=== PATIENT | female | born 1950 | race Caucasian/White ===

== ENCOUNTER → 2016-11-13 | Outpatient (CLI) | payer OTHER ==
[2016-01-27 15:50] VITALS: BP 120/77
[~2016-11-13] MED LIST: SULF1TAB24 PO
--- NOTE | 2016-11-13 13:45 | RAD ---
Chest radiograph 11/13/2016 at 1126 hours Indication: Tobacco abuse for 51 years. Comparison: Chest radiograph 03/11/2015 Technique: PA and lateral views of the chest are provided. Findings: The cardiomediastinal silhouette is within normal limits. There are no pleural effusions. No pulmonary vascular congestion. No pneumothorax. Lungs are clear. Osseous structures are normal in appearance. Impression: No acute cardiopulmonary process.
== END | disposition home or self-care (01) ==
LOC: DXRADRC 11:22
PROVIDERS: ATTEND Nurse Practitioner Family
DX: Z00.00 Encounter for general adult medical examination without abnormal findings (principal); Z71.6 Tobacco abuse counseling
CPT/HCPCS: 71020

== ENCOUNTER → 2019-02-10 | Outpatient (CLI) | payer MEDICARE, OTHER ==
[2016-01-27 15:50] VITALS: BP 120/77
--- NOTE | 2019-02-10 15:29 | RAD ---
EXAM: Chest, 2 views. HISTORY: Dry cough. Smoking history. COMPARISON: 11/13/2016 FINDINGS: 2 views of the chest are obtained. There is no infiltrate, effusion or pneumothorax. The heart is normal in size. There is a tiny nodular opacity overlying the left mid thorax, likely a tiny granuloma. IMPRESSION: No acute pulmonary finding. Electronically signed by: Domonique Tan MD (02/10/2019 3:26 PM) [place] [id number]
== END | disposition home or self-care (01) ==
LOC: RAD 15:00
PROVIDERS: ATTEND Physician Assistant Medical
DX: J98.4 Other disorders of lung (principal); Z80.0 Family history of malignant neoplasm of digestive organs; F17.200 Nicotine dependence, unspecified, uncomplicated
CPT/HCPCS: 71046

== ENCOUNTER → 2019-05-20 | Day surgery (SDC) | payer MEDICARE, OTHER ==
[~2019-05-20] MED LIST changes: +ALBU2.5V8 IH; +BUDE10.2 IH; +CHOL4POW11 PO; +FENO145T32 PO; +IV RINGERS SOLUTION,LACTATED 1,000 ML IV SCH; +LISI10TA2 PO; +METF10007 PO; +OMEG1CAP2 PO; +PROPOFOL 20 ML IV ONE
[2019-05-20 13:15] VITALS: BP 134/82
== END | disposition home or self-care (01) ==
LOC: SURG 11:21
PROVIDERS: ATTEND Internal Medicine Gastroenterology
DX: K21.9 Gastro-esophageal reflux disease without esophagitis (principal); K29.50 Unspecified chronic gastritis without bleeding; B96.81 Helicobacter pylori [H. pylori] as the cause of diseases classified elsewhere; J44.9 Chronic obstructive pulmonary disease, unspecified; E11.9 Type 2 diabetes mellitus without complications; I10 Essential (primary) hypertension; M54.5 Low back pain; G47.00 Insomnia, unspecified; E78.5 Hyperlipidemia, unspecified; F17.210 Nicotine dependence, cigarettes, uncomplicated; E66.9 Obesity, unspecified; Z80.0 Family history of malignant neoplasm of digestive organs; Z98.890 Other specified postprocedural states; Z79.899 Other long term (current) drug therapy; Z88.6 Allergy status to analgesic agent; Z88.8 Allergy status to other drugs, medicaments and biological substances; Z79.84 Long term (current) use of oral hypoglycemic drugs; Z68.39 Body mass index [BMI] 39.0-39.9, adult
CPT/HCPCS: 43239; 82947; J2704; J7120

== ENCOUNTER → 2019-10-31 | Outpatient (CLI) | payer MEDICARE, OTHER ==
[2019-05-20 13:15] VITALS: BP 134/82
[~2019-10-31] MED LIST changes: -IV RINGERS SOLUTION,LACTATED 1,000 ML IV SCH; -PROPOFOL 20 ML IV ONE; +TRAM50TA PO
--- NOTE | 2019-10-31 09:03 | RAD ---
L-SPINE 6V AP/LAT/OBL/FLEX/EXT History: Back pain, fall 3 months ago with continued pain Comparison: None. Findings: 8 views of the lumbar spine are submitted. There is mild right lateral subluxation L2 relative to L3. There is minimal posterior subluxation L3 relative to L4 fairly similar with flexion and extension. There is moderate to severe degenerative disc disease at L5-S1, mild to moderate degenerative disc disease at L4-5 and to a lesser degree at L3-4, minimally at more superior lumbar levels. There is multilevel spondylosis L1-L2 through L4-5. There is facet degenerative change greater inferiorly of the lumbar spine. There is scattered calcified plaque of the abdominal aorta. Impression: 1. There is lumbar degenerative disc disease greatest at L5-S1 and to lesser degree L3-4 and L4-5. There is multilevel spondylosis. There is minimal posterior subluxation L3 relative to L4. Electronically signed by: Praveen Francisco MD (10/31/2019 9:00 AM) [id number]
== END | disposition home or self-care (01) ==
LOC: PMG 08:19
PROVIDERS: ATTEND Physician Assistant Medical
DX: M51.37 Other intervertebral disc degeneration, lumbosacral region (principal); M47.817 Spondylosis without myelopathy or radiculopathy, lumbosacral region; I70.0 Atherosclerosis of aorta
CPT/HCPCS: 72114

== ENCOUNTER 2021-01-17 17:43 | Emergency (ER) | payer MEDICARE, OTHER ==
[~2021-01-17] VITALS: Ht 160 cm; Wt 84.8 kg
[~2021-01-17 17:43] MED LIST changes: +LISI10TA16 PO; -LISI10TA2 PO
[2021-01-17 17:51] VITALS: BP 140/66
[2021-01-17] MEDS ORDERED: PRED-220 PO (18:24)
--- NOTE | 2021-01-17 18:24 | PHYS DOC ---
Past History Past Medical History: Diabetes, High Cholesterol, Other Past Surgical History: No Surgical History Alcohol Use: Occasionally Drug Use: None General Adult EDM: Chief Complaint: SKIN PROBLEM HPI: HPI: 70-year-old female presents with itchy ears, facial swelling, intermittent dry cough. The patient has noticed the itching of her ears and the mild swelling of her bilateral face for 3 or 4 days. She has tried Benadryl and panl-bil-fmgzrnl allergy medicines with no relief. She is not allergic to anything as far she knows. She has no idea why her face to be swollen. She has not changed any medications. She has had no new lotions, soaps, or cosmetics. She was positive for COVID-19 back in November of this year. She has had her cough since that time. No change to the cough. She is a cigarette smoker. Review of Systems: Review of Systems: Constitutional: Denies fever or chills Eyes: Denies change in visual acuity HENT: Swollen face, itchy ears. Respiratory: Cough without shortness of breath Cardiovascular: Denies chest pain or edema GI: Denies abdominal pain, nausea, vomiting, bloody stools or diarrhea : Denies dysuria Musculoskeletal: Denies back pain or joint pain Integument: Denies rash Neurologic: Denies headache, focal weakness or sensory changes Endocrine: Denies polyuria or polydipsia Lymphatic: Denies swollen glands Psychiatric: Denies depression or anxiety Allergies: Allergies: Allergies Coded Allergies Type Severity Reaction Last Updated Verified niacin Allergy Unknown 05/14/19 No codeine Adverse Reaction Intermediate makes her cry 05/14/19 No Physical Exam: PE: Constitutional: Well developed, well nourished, no acute distress, non-toxic appearance. [] HENT: Normocephalic, atraumatic, bilateral external ears normal, oropharynx moist, no oral exudates, nose normal. [] Eyes: PERRLA, EOMI, conjunctiva normal, no discharge. [] Neck: Normal range of motion, no tenderness, supple, no stridor. [] Cardiovascular:Heart rate regular rhythm, no murmur [] Lungs & Thorax: Bilateral breath sounds clear to auscultation [] Abdomen: Bowel sounds normal, soft, no tenderness, no masses, no pulsatile masses. [] Skin: Mildly erythematous and mildly edematous cheeks bilaterally. [] Back: No tenderness, no CVA tenderness. [] Extremities: No tenderness, no cyanosis, no clubbing, ROM intact, no edema. [] Neurologic: Alert and oriented X 3, normal motor function, normal sensory function, no focal deficits noted. [] Psychologic: Affect normal, judgement normal, mood normal. [] Current Patient Data: Vital Signs: Vital Signs Date Time Temp Pulse Resp B/P (MAP) Pulse Ox O2 Delivery O2 Flow Rate FiO2 01/17/21 17:51 98.1 98 20 140/66 (90) 97 Room Air EKG: EKG: [] Radiology/Procedures: Radiology/Procedures: [] Heart Score: C/O Chest Pain: N/A Risk Factors: Risk Factors: DM, Current or recent (<one month) smoker, HTN, HLP, family history of CAD, obesity. Risk Scores: Score 0 - 3: 2.5% MACE over next 6 weeks - Discharge Home Score 4 - 6: 20.3% MACE over next 6 weeks - Admit for Clinical Observation Score 7 - 10: 72.7% MACE over next 6 weeks - Early Invasive Strategies Course & Med Decision Making: Course & Med Decision Making Pertinent Labs and Imaging studies reviewed. (See chart for details) The patient has no history of seasonal allergies, but her symptoms sound similar to seasonal allergies. She has had no new exposures that she can think of. The patient has had reaction to high-dose steroids in the past. It makes her stay awake at night and feels jittery. We will try low-dose of prednisone 10 mg twice a day for 5 days to see if this helps with her symptoms overall. She is stable for discharge at this time. [] Dragon Disclaimer: Dragon Disclaimer: This electronic medical record was generated, in whole or in part, using a voice recognition dictation system. Departure Departure: Impression: Primary Impression: Facial rash Disposition: HOME / SELF CARE / HOMELESS Condition: STABLE Referrals: BENJAMÍN FIGUEROA (PCP) Patient Instructions: Rash, Eedv-fo-Gdmc Scripts Prednisone (PREDNISONE) 10 Mg Tablet 10 MG PO BID for rash for 5 Days, #10 TAB Prov: AYUSH CERVANTES DO 01/17/21 AYSUH CERVANTES DO Jan 17, 2021 18:24
[2021-01-17] MEDS ORDERED: predniSONE 10 MG TABLET. PO ONE (18:30)
== END 2021-01-17 19:00 | disposition home or self-care (01) ==
LOC: ER 17:43
DX: R21 Rash and other nonspecific skin eruption (principal); R22.0 Localized swelling, mass and lump, head; E11.9 Type 2 diabetes mellitus without complications; E78.00 Pure hypercholesterolemia, unspecified; Z88.1 Allergy status to other antibiotic agents; Z88.5 Allergy status to narcotic agent
CPT/HCPCS: 99283; J7512

== ENCOUNTER → 2021-02-09 | Outpatient (CLI) | payer MEDICARE, OTHER ==
[2021-01-17 17:51] VITALS: BP 140/66
[~2021-02-09] MED LIST changes: +PRED-220 PO
--- NOTE | 2021-02-09 09:40 | RAD ---
EXAM: Chest, 2 views. HISTORY: Shortness of breath. COMPARISON: 02/10/2019 FINDINGS: 2 views of the chest are obtained. There is right suprahilar mass. There is no pleural effu conor or pneumothorax. The heart is normal in size. IMPRESSION: Right suprahilar mass. Correlate with a dedicated chest CT. Electronically signed by: Domonique Tan MD (02/09/2021 9:37 AM) [id number]
== END ==
LOC: RAD 09:21
PROVIDERS: ATTEND Physician Assistant Medical
DX: J44.9 Chronic obstructive pulmonary disease, unspecified (principal)
CPT/HCPCS: 71046

== ENCOUNTER 2021-02-13 09:48 | Emergency (ER) | payer MEDICARE, OTHER ==
[~2021-02-13] VITALS: Ht 160 cm; Wt 84.8 kg
[2021-02-13 09:48] VITALS: BP 137/64
[2021-02-13] MEDS ORDERED: FLUT9.9S NS (11:23)
[2021-02-13] MEDS ORDERED: CETI10TA74 PO (11:23)
--- NOTE | 2021-02-13 11:25 | PHYS DOC ---
Past History Past Medical History: Diabetes, High Cholesterol, Other Past Surgical History: No Surgical History Alcohol Use: Occasionally Drug Use: None General Adult EDM: Chief Complaint: SKIN PROBLEM HPI: HPI: 62-year-old female past medical history of yaf-byjhbro-btgnsuvum diabetes, hypertension and tobacco use, presents the ED with complaints of redness to both cheeks stating " everyone keeps saying my face and neck is swollen." Reports she sleeps in an old building with a fan on. Redness and swelling decrease when she leaves her apartment. Is a very nasal voice and reports nasal congestion for over 6 months. Also reports itchy watery eyes. States she has had chronic shortness of breath since having Covid in November. Had a mass on her lung CAT scan and has urgent follow-up for this. Denies any known history of autoimmune diso rders. No associated anorexia, lack of taste or smell or difficulties breathing. Was seen in the ED for similar symptoms last month. Reports Zulema Zafar started her on Bactrim and prednisone. Use to take zyrtec. Has no known mental or medication allergies. Review of Systems: Review of Systems: Constitutional: Denies fever or chills Eyes: Denies change in visual acuity HENT: Denies nasal congestion or sore throat Respiratory: Denies cough or shortness of breath Cardiovascular: Denies chest pain or edema GI: Denies abdominal pain, nausea, vomiting, bloody stools or diarrhea : Denies dysuria or hematuria Musculoskeletal: Denies back pain or joint pain Integument: Denies desquamation or blistering lesions Neurologic: Denies headache, focal weakness or sensory changes Endocrine: Denies polyuria or polydipsia Lymphatic: Denies swollen glands Psychiatric: Denies depression or anxiety Allergies: Allergies: Allergies Coded Allergies Type Severity Reaction Last Updated Verified niacin Allergy Unknown 05/14/19 No codeine Adverse Reaction Intermediate makes her cry 05/14/19 No Physical Exam: PE: Constitutional: Well developed, well nourished, no acute distress, non-toxic appearance. HENT: Normocephalic, atraumatic, mild lower erythema over both cheeks-redness is not warm to the touch, very nasal/congested voice, no oropharyngeal edema Eyes: EOMI, conjunctiva normal, no discharge. Neck: Normal range of motion, supple, Cardiovascular: S1/2 present, regular rhythm Lungs & Thorax: Speaking in full sentences, no drooling or muffled voice, bilateral equal chest rise, no tachypnea or increased work of breathing Abdomen: soft, no tenderness, Skin: Warm, dry, no erythema, no rash. [] Back: No tenderness, no CVA tenderness. [] Extremities: No tenderness, no cyanosis, no lower extremity edema Neurologic: Alert and oriented X 3, normal motor function, normal sensory function, no focal deficits noted. [] Psychologic: Affect normal, judgement normal, mood normal. [] EKG: EKG: [] Radiology/Procedures: Radiology/Procedures: [] Heart Score: C/O Chest Pain: No Risk Factors: Risk Factors: DM, Current or recent (<one month) smoker, HTN, HLP, family history of CAD, obesity. Risk Scores: Score 0 - 3: 2.5% MACE over next 6 weeks - Discharge Home Score 4 - 6: 20.3% MACE over next 6 weeks - Admit for Clinical Observation Score 7 - 10: 72.7% MACE over next 6 weeks - Early Invasive Strategies Course & Med Decision Making: Course & Med Decision Making Pertinent Labs and Imaging studies reviewed. (See chart for details) Concern for waxing and waning, chronic facial rash that improves when leaving her apartment. Also with chronic sinusitis. Patient compliant with her Bactrim and prednisone. Will add Zyrtec and Flonase to treat for allergic rhinitis/sinusitis in addition to autoimmune and infectious causes being treated. SLE/autoimmune on ddx. Patient well-appearing, nontoxic. Oral cavity with no mucous membrane lesions. Negative Nikolsky sign. Will discharge home with strict ED return precautions were given for blistering lesions, skin slough ing, fever, nuchal rigidity, blurry vision neurologic deficits. Encouraged urgent outpatient follow-up with PMD and allergy, immunology and rheumatology. Life-threatening processes were considered but are low suspicion at this time, given history, physical exam and ED workup. Pt was educated on all prescription medications and adverse effects. All patient's questions were answered and pt was stable at time of discharge. Life/limb-threatening differential includes but is not limited to, erythema multiforme, rocha-missy syndrome, toxic epidermal necrolysis, staphylococcal scalded skin syndrome, necrotizing fasciitis/myositis/cellulitis, purpura fulminans, heparin or warfarin induced skin necrosis, angioedema, anaphylaxis drug rash, disseminated intravascular coagulation, disseminated gonococcal disease, vasculitis, septicemia, petechial disorder or coagulopathy, viral exanthem, Kawasaki's disease or life-threatening burn requiring burn center management or escharotomy. I have spoken with the patient and/or caregivers. I explained the patient's condition, diagnoses and treatment plan based on the information available to me at this time. I have answered the patient and/or caregiver's questions and addressed any concerns. The patient and/or caregivers have a good understanding of patient's diagnosis, condition and treatment plan as can be expected at this point. Vital signs have been stable. Patient's condition is stable and appropriate for discharge from the emergency department. Patient will pursue further outpatient evaluation with primary care physician or other designated or consulting physician as outlined in the discharge instructions. The patient and/or caregivers are agreeable to this plan of care and follow-up instructions have been explained in detail. The patient and/or caregivers have received these instructions in written form and have expressed an understanding of the discharge instructions. The patient and/or caregivers are aware that any significant change of condition or worsening of symptoms should prompt immediate return to this or the closest emergency department or call to 1. Myke Disclaimer: Myke Disclaimer: This electronic medical record was generated, in whole or in part, using a voice recognition dictation system. Departure Departure: Impression: Primary Impression: Facial rash Additional Impression: Allergic sinusitis Disposition: HOME / SELF CARE / HOMELESS Condition: STABLE Referrals: ZULEMA FIGUEROA (PCP) Follow-up with your primary care physician in 24 to 48 hours OR FOLLOW UP WITH FAMILY MEDICINE: [address] [facility], [facility] [address] [place] [address] Patient Instructions: Allergic Rhinitis, Allergy Skin Testing, Sinusitis Additional Instructions: [facility]-consider for testing [facility] Call for appointment [phone] [facility] on the [address], [address] (Address for directions and navigation systems: [address] [place] [address]) OR Rheumatology FOR DEFINITIVE MANAGEMENT-consider autoimmune evaluation Maxim Duron MD [facility] [address] [facility] [address] [place] [address] EMERGENCY DEPARTMENT GENERAL DISCHARGE INSTRUCTIONS Thank you for coming to [facility] (ED) today and trusting us with you care. We trust that you had a positivie experience in our Emergency Department. If you wish to speak to the department management, you may call the director at [phone]. YOUR FOLLOW UP INSTRUCTIONS ARE FOLLOWS: 1. Do you have a private Doctor? If you do not have a private doctor, please ask for a resource list of physicians or clinics that may be able to assist you with follow up care. 2. The Emergency Physician has interpreted your x-rays. The X-Ray specialist will also review them. If there is a change in the findings, you will be notified in 48 hours when at all possible. 3. A lab test or culture has been done, your results will be reviewed and you will be notified if you need a change in treatment. ADDITIONAL INSTRUCTIONS AND INFORMATION: 1. Your care today has been supervised by a physician who is specially trained in emergency care. Many problems require more than one evaluation for a complete diagnosis and treatment. We recommend that you schedule your follow up appointment as recommended to ensure complete treatment of you illness or injury. If you are unable to obtain follow up care and continue to have a problem, or if your condition worsens, we recommend that you return to the ED. 2. We are not able to safely determine your condition over the phone nor are we able to give sound medical advice over the phone. For these safety reasons, if you call for medical advice we will ask you to come to the ED for further evaluation. 3. If you have any questions regarding these discharge instructions please call the ED at [phone]. SAFETY INFORMATION: In the interest of safety, wellness, and injury prevention; we encourage you to wear your sealbelt, if you smoke; quite smoking, and we encourage family to use a protective helmet for bicycling and other sporting events that present an increased risk for head injury. IF YOUR SYMPTOMS WORSEN OR NEW SYMPTOMS DEVELOP, OR YOU HAVE CONCERNS ABOUT YOUR CONDITION; OR IF YOUR CONDITION WORSENS WHILE YOU ARE WAITING FOR YOUR FOLLOW UP APPOINTMENT; EITHER CONTACT YOUR PRIMARY CARE DOCTOR, THE PHYSICIAN WHOSE NAME AND NUMBER YOU WERE GIVEN, OR RETURN TO THE ED IMMEDIATELY. Scripts Fluticasone Propionate (Flonase Allergy Relief) 9.9 Ml [place].susp 2 SPRAYS NS DAILY for allergic rhinitis for 7 Days, BOTTLE Prov: ZULEMA CLIFTON DO 02/13/21 Cetirizine Hcl (ZYRTEC) 10 Mg Tablet 1 TAB PO DAILY for allergies, #30 TAB 0 Refills Prov: ZULEMA CLIFTON DO 02/13/21 ZULEMA CLIFTON DO Feb 13, 2021 11:24
== END 2021-02-13 11:30 | disposition home or self-care (01) ==
LOC: ER 09:48
DX: R21 Rash and other nonspecific skin eruption (principal); J30.9 Allergic rhinitis, unspecified; E11.9 Type 2 diabetes mellitus without complications; E78.5 Hyperlipidemia, unspecified
CPT/HCPCS: 99283

== ENCOUNTER → 2021-02-23 | Outpatient (CLI) | payer MEDICARE, OTHER ==
[2021-02-13 09:48] VITALS: BP 137/64
[~2021-02-23] MED LIST changes: +CETI10TA74 PO; +FLUT9.9S NS
--- NOTE | 2021-02-23 16:52 | RAD ---
EXAM: CT CHEST WITHOUT CONTRAST HISTORY: Abnormal chest radiograph COMPARISON: Chest radiograph 02/09/2021 TECHNIQUE: Helical CT of the chest performed without contrast. Coronal and sagittal reformats were o btained. One or more of the following individualized dose reduction techniques were utilized for this examinat ion: 1. Automated exposure control 2. Adjustment of the mA and/or kV according to patient size 3. Use of iterative reconstruction technique. FINDINGS: Thyroid gland and thoracic inlet: Unremarkable. Heart and great vessels: Heart is normal in size. Trace pericardial fluid. There are coronary artery and aortic valve calcifications. Thoracic aorta is normal in caliber. Mediastinum and ervin: Bulky confluent right mediastinal and hilar soft tissue confluent with a right suprahilar mass described below. Lungs and pleura: There is a large right suprahilar mass measuring about 8 x 7 x 6 cm in greatest jose meters. This extends into the mediastinum. The mass encases the right upper lobe central bronchovascu lar structures. Causes complete occlusion of the right upper lobe bronchus and severe narrowing of th e right mainstem bronchus and proximal bronchus intermedius. There were more bandlike confluent opaci ties in the right upper lobe distal to the mass that may be postobstructive atelectasis or pneumonia. There numerous additional tiny surrounding nodules and mild interlobular septal thickening in the ri ght upper lobe around the mass. The lungs are otherwise clear. No pleural effusion. Chest wall and axillae: There is fat stranding in the axillary regions and mildly prominent bilateral axillary lymph nodes. For example left axillary lymph node measures 1 cm short axis. A right axillar y lymph node measures 7 mm axis. Additional right axillary lymph node measures 8 mm short axis. There appear to be collateral vessels in the chest wall. Mild body wall edema. Upper abdomen: There is an abnormal mesenteric lymph node in the upper abdomen posterior to the gastr ic antrum measuring 1.9 x 1.3 cm (image 102, series 3). There are enlarged aortocaval and periaortic lymph nodes. For example, and aortocaval lymph node measures 1.9 x 0.9 cm (image 106, series 111).. A dditional smaller ramses hepatis and gastrohepatic ligament lymph nodes. Probable sludge in the gallbl adder. Bones: No acute osseous abnormality. IMPRESSION: 1. Large right suprahilar mass extending into the mediastinum highly suspicious for malignancy. There are numerous tiny micronodules and interlobular septal thickening around the mass, which may reflect lymphangitic spread of malignancy. 2. There is complete occlusion of the right upper lobe bronchus and severe narrowing of the right rigoberto nstem bronchus and proximal bronchus intermedius by the mass. Probable postobstructive atelectasis ve rsus pneumonia in the right upper lobe distal to the mass. 3. Additional abnormal lymph nodes in the axillae and upper abdomen suspicious for metastatic disease . Electronically signed by: Maddy Day MD (02/23/2021 4:49 PM) [facility]
== END ==
LOC: CT 14:07
PROVIDERS: ATTEND Physician Assistant Medical
DX: J18.9 Pneumonia, unspecified organism (principal); R91.8 Other nonspecific abnormal finding of lung field; J98.4 Other disorders of lung; R93.89 Abnormal findings on diagnostic imaging of other specified body structures; I35.8 Other nonrheumatic aortic valve disorders
CPT/HCPCS: 71250

== ENCOUNTER 2021-03-10 10:14 | Emergency (ER) | payer MEDICARE, OTHER ==
[~2021-03-10] VITALS: Ht 160 cm; Wt 84.8 kg
--- NOTE | 2021-03-10 11:38 | PHYS DOC ---
Past History Past Medical History: Diabetes, High Cholesterol, Other (STEPHEN ROMERO) Past Surgical History: No Surgical History (STEPHEN ROMERO) Alcohol Use: Rarely Drug Use: None (STEPHEN ROMERO) General Adult EDM: Chief Complaint: UPPER EXTREMITY SWELLING HPI: HPI: Patient is a 70 year old female with history of diabetes and hypertension who presents with bilateral upper extremity, bilateral lower extremity and chest swelling and shortness of breath with known pneumonia x1 week. Patient states she was staying with family in [place] for 1 week and had multiple visits to the ER. She states she received 3 breathing treatments, was diagnosed with pneumonia and discharged with prednisone. Patient was Covid positive in November and has ongoing shortness of breath since that time. Patient denies known history of CHF or kidney disease. Patient has been a smoker for the past 55 years. Patient denies fever, chills, weakness, chest pain, palpitations, abdominal pain, NVD. (STEPHEN ROMERO) Review of Systems: Review of Systems: Constitutional: Denies fever or chills Eyes: Denies change in visual acuity or visual field deficits HENT: Denies nasal congestion or sore throat Respiratory: See HPI Cardiovascular: See HPI GI: Denies abdominal pain, nausea, vomiting, bloody stools or diarrhea : Denies dysuria or hematuria Musculoskeletal: Denies back pain or joint pain Integument: Denies rash or other skin lesions Neurologic: Denies headache, focal weakness or sensory changes (STEPHEN ROMERO) Allergies: Allergies: Allergies Coded Allergies Type Severity Reaction Last Updated Verified niacin Allergy Unknown 05/14/19 No codeine Adverse Reaction Intermediate makes her cry 05/14/19 No (STEPHEN ROMERO) Physical Exam: PE: Constitutional: Obese, well nourished, no acute distress, non-toxic appearance. HENT: Normocephalic, atraumatic, bilateral external ears normal, oropharynx moist, no oral exudates, nose normal. Eyes: PERRLA, EOMI, conjunctiva normal, no discharge. Neck: Normal range of motion, no tenderness, no stridor. Cardiovascular: Heart rate regular rhythm, no murmur. Lungs & Thorax: Decreased breath sounds in bilateral bases, upper lung pederson with expiratory rhonchi bilaterally. Abdomen: Protuberant abdomen, bowel sounds normal, soft, no tenderness, no masses, no pulsatile masses. Skin: Warm, dry, no erythema, no rash. Back: No tenderness, no CVA tenderness. Extremities: Minimal swelling to bilateral lower extremities without pitting. Bilateral upper extremities edematous to the hand R>L, right hand trace pitting. No tenderness, no cyanosis, no clubbing, ROM intact. Neurologic: Alert and oriented x3, normal motor function, no focal deficits noted. (STEPHEN ROMERO) Current Patient Data: Labs: Laboratory Tests Test 03/10/21 11:23 03/10/21 11:55 03/10/21 12:00 03/10/21 12:14 White Blood Count 9.5 x10^3/uL (4.0-11.0) Red Blood Count 3.53 x10^6/uL (3.50-5.40) Hemoglobin 10.2 g/dL (12.0-15.5) Hematocrit 31.2 % (36.0-47.0) Mean Corpuscular Volume 88 fL (79-100) Mean Corpuscular Hemoglobin 29 pg (25-35) Mean Corpuscular Hemoglobin Concent 33 g/dL (31-37) Red Cell Distribution Width 17.1 % (11.5-14.5) Platelet Count 383 x10^3/uL (140-400) Neutrophils (%) (Auto) 71 % (31-73) Lymphocytes (%) (Auto) 20 % (24-48) Monocytes (%) (Auto) 7 % (0-9) Eosinophils (%) (Auto) 2 % (0-3) Basophils (%) (Auto) 1 % (0-3) Neutrophils # (Auto) 6.8 x10^3uL (1.8-7.7) Lymphocytes # (Auto) 1.9 x10^3/uL (1.0-4.8) Monocytes # (Auto) 0.6 x10^3/uL (0.0-1.1) Eosinophils # (Auto) 0.1 x10^3/uL (0.0-0.7) Basophils # (Auto) 0.1 x10^3/uL (0.0-0.2) Prothrombin Time 11.0 SEC (9.4-11.4) Prothromb Time International Ratio 1.1 (0.9-1.1) Activated Partial Thromboplast Time 26 SEC (23-33) Sodium Level 138 mmol/L (136-145) Potassium Level 4.7 mmol/L (3.5-5.1) Chloride Level 101 mmol/L (98-107) Carbon Dioxide Level 32 mmol/L (21-32) Anion Gap 5 (6-14) Blood Urea Nitrogen 12 mg/dL (7-20) Creatinine 0.8 mg/dL (0.6-1.0) Estimated GFR (Cockcroft-Gault) 71.3 BUN/Creatinine Ratio 15 (6-20) Glucose Level 92 mg/dL (70-99) Calcium Level 8.6 mg/dL (8.5-10.1) Magnesium Level 1.4 mg/dL (1.8-2.4) Total Bilirubin 0.2 mg/dL (0.2-1.0) Aspartate Amino Transf (AST/SGOT) 9 U/L (15-37) Alanine Aminotransferase (ALT/SGPT) 21 U/L (14-59) Alkaline Phosphatase 119 U/L (46-116) Troponin I High Sensitivity 6 ng/L (4-50) HD-Rdl-N-Type Natriuretic Peptide 343 pg/mL (0-124) Total Protein 7.5 g/dL (6.4-8.2) Albumin 3.1 g/dL (3.4-5.0) Albumin/Globulin Ratio 0.7 (1.0-1.7) Lactic Acid Level 0.8 mmol/L (0.4-2.0) Blood Gas pH 7.53 (7.35-7.45) Blood Gas PCO2 34 mmHg (35-45) Blood Gas PO2 98 mmHg (80-100) Blood Gas HCO3 28 mmol/L (22-26) Arterial Bld O2 Saturation (Calc) 98 % (92-99) FiO2 21 % SARS-CoV-2 Antigen (Rapid) Negative (NEGATIVE) Test 03/10/21 12:58 Urine Collection Type Unknown Urine Color Yellow Urine Clarity Cloudy Urine pH 6.0 Urine Specific [place] 1.015 Urine Protein Neg (NEG-TRACE) Urine Glucose (UA) Neg mg/dL (NEG) Urine Ketones (Stick) Neg mg/dL (NEG) Urine Blood Small (NEG) Urine Nitrite Pos (NEG) Urine Bilirubin Neg (NEG) Urine Urobilinogen Dipstick 0.2 mg/dL (0.2 mg/dL) Urine Leukocyte Esterase Large (NEG) Urine RBC 1-2 /HPF (0-2) Urine WBC >40 /HPF (0-4) Urine Squamous Epithelial Cells Few /LPF Urine Bacteria Many /HPF (0-FEW) Vital Signs: Vital Signs Date Time Temp Pulse Resp B/P (MAP) Pulse Ox O2 Delivery O2 Flow Rate FiO2 03/10/21 10:31 97.4 84 16 126/49 (74) 98 Room Air (STEPHEN ROMERO) EKG: EKG: EKG Interpreted by Dr. Royal at 1123: Regular rate and rhythm 80 bpm with no ectopic beats. Low voltage EKG. No concerning ST-T wave changes. (STEPHEN ROMERO) Radiology/Procedures: Radiology/Procedures: PROCEDURE: CHEST AP ONLY Portable chest x-ray compared to similar PA and lateral chest x-ray dated February 092020 for shortness of breath. FINDINGS: There is redemonstration of a right suprahilar mass, with elevation the right hemidiaphragm likely reflecting some degree of segmental atelectasis as well. Overall this does not appear worse than on the prior chest x-ray, and adjacent lung may be slightly better aerated. Left lung is clear. Heart size within normal limits. IMPRESSION: 1. Essentially stable chest x-ray with right suprahilar mass and signs of upper lobar segmental atelectasis. No new lung parenchymal abnormalities. Electronically signed by: Parveen Hernandez MD (03/10/2021 11:39 AM) [id number] PROCEDURE: CT CHEST ABD PELVIS W/CONTRAST EXAM: CT CHEST, ABDOMEN, AND PELVIS WITH CONTRAST INDICATION: Upper extremity swelling, lung mass, pneumonia COMPARISON: CT chest 02/23/2021 TECHNIQUE: Helical CT imaging performed of the chest, abdomen and pelvis after administration of 75 mL Omnipaque 300 intravenous contrast. Sagittal and coronal reformats were obtained. One or more of the following individualized dose reduction techniques were utilized for this examination: 1. Automated exposure control 2. Adjustment of the mA and/or kV according to patient size 3. Use of iterative reconstruction technique. FINDINGS: CHEST: Thyroid gland and thoracic inlet: Unremarkable. Heart and great vessels: Heart is normal in size. There is trace pericardial fluid, unchanged. There are coronary artery calcifications. Thoracic aorta is normal in caliber. Central pulmonary arteries are clear. There is attenuation of right upper lobe pulmonary arteries in the region of the mass. There is occlusion of the superior vena cava, and acute appearing thrombus in the right brachiocephalic vein and part of the right subclavian vein. There are multiple collateral vessels in the right chest wall and abdominal wall. The azygos vein is enlarged. There is a hot quadrate lobe sign in the liver reflecting portosystemic shunting. Mediastinum and ervin: Right suprahilar mass extending into the mediastinum is unchanged, described below. Lungs and pleura: The large right upper lobe suprahilar mass abutting and extending into the mediastinum is unchanged. This measures approximately 7 to 8 cm in greatest diameter. This continues to encase the right central bronchovascular structures, with occlusion of the right upper lobe bronchus and narrowing of the bronchus intermedius. There is unchanged consolidation of lung distal to the mass in the right upper lobe, either post obstructive atelectasis or pneumonia. Unchanged septal thickening and tiny nodules around the mass. There is a new small right pleural effusion. Chest wall and axillae: There are multiple collateral vessels in the chest wall, as above. There is new extensive subcutaneous edema in the chest wall. Prominent bilateral axillary lymph nodes. Bones: No acute osseous abnormality in the chest. ABDOMEN AND PELVIS: Liver: Liver is enlarged measuring 20 cm in length. There is no focal lesion. There is a hot quadrate lobe sign in the liver reflecting portosystemic shunting. Gallbladder/Biliary Tree: Normal. Pancreas: Normal. Spleen: Normal. Adrenal Glands: Normal. Kidneys/Ureters/Bladder: Kidneys are normal in size and enhance symmetrically. No hydronephrosis. Ureters are normal. There is diffuse bladder wall thickening. Reproductive Organs: Uterus is present. No adnexal mass. Stomach, small bowel, and colon: The stomach, small bowel, and appendix are normal. There is sigmoid diverticulosis. Vasculature: No aortic aneurysm. Mild calcified aortoiliac atherosclerosis. Lymph Nodes: Enlarged portacaval lymph nodes measuring up to 1 cm short axis are unchanged. There is an abnormal lymph node or soft tissue nodule just inferior to the pancreatic neck and posterior to the gastric antrum measuring 2.1 x 1.4 cm, unchanged. There is an enlarged right external iliac chain lymph nodes measuring 2.3 x 2.0 cm (image 123, series 5). Smaller right external iliac chain lymph node measures 1.3 x 0.7 cm (image 1 3, series 5). There is an enlarged aortocaval lymph node measuring 1.8 x 0.9 cm. Prominent left periaortic lymph nodes. There is an enlarged left pelvic sidewall lymph node measuring 1.1 x 1.5 cm. Peritoneum and retroperitoneum: No free fluid or free air. Bones: There is a large lytic lesion in the left iliac wing with a soft tissue component measuring 5.2 x 4.5 cm (image 92, series 5). Suspected additional ly tic lesions in the posterior iliac bones There is heterogeneous appearance elsewhere in the pelvis which may represent additional lesions. IMPRESSION: 1. 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 There is acute appearing thrombus in the right brachiocephalic vein and subclavian veins. Extensive collateral vessels in the right chest wall and upper abdomen. New subcutaneous edema right chest wall. 2. Unchanged right suprahilar mass extending into the mediastinum. New small right pleural effusion. 3. Unchanged bilateral axillary lymphadenopathy. There is also lymphadenopathy in the abdomen and pelvis. 4. Large lytic lesion left iliac wing with a soft tissue component measuring approximately 5 cm. Suspected additional lytic lesions in the pelvis. 5. Diffuse bladder wall thickening, nonspecific. FOR INTERNAL CODING PURPOSES Critical result: Findings discussed with at 03/10/2021 1:53 PM. RESULT CODE: (C) Electronically signed by: Maddy Day MD (03/10/2021 2:03 PM) [id number] (STEPHEN ROMERO) Heart Score: C/O Chest Pain: No (STEPHEN ROMERO) Course & Med Decision Making: Course & Med Decision Making Pertinent Labs and Imaging studies reviewed. (See chart for details) Patient knows that she has some sort of mass or pneumonia on her lung, but has not followed up with her primary care or pulmonology for further evaluation. Her upper extremity swelling is concerning, especially given the fact that it is worse on the right than the left. Work-up today will include cardiac, pul monary, renal, septic evaluation. CT imaging results reveal several pathological findings. Most concerning are a 7-8 cm right lung mass occluding the superior vena cava, a left iliac wing lytic lesion, lymphadenopathy throughout the abdomen and pelvis, and right brachiocephalic and subclavian vein occlusion. Patient will be transferred to [facility] for interventional radiology as well as oncology consults. Dr. Jacobson will accept patient at [facility] with aforementioned consults. Patient is to be clear liquid diet until midnight. (STEPHEN ROMERO) Course & Med Decision Making Did not see or evaluate patient. Agree with PAs work-up and disposition per note. (ISSA ROYAL MD) Dragon Disclaimer: Dragon Disclaimer: This electronic medical record was generated, in whole or in part, using a voice recognition dictation system. (STEPHEN ROMERO) Departure Departure: Impression: Primary Impression: Superior vena cava compression syndrome Additional Impressions: Mass of right lung Brachiocephalic vein thrombosis Subclavian vein thromboembolism, acute Qualified Codes: I82.B11 - Acute embolism and thrombosis of right subclavian vein Abdominal lymphadenopathy Lytic bone lesion of hip Disposition: 02 [facility]ORT TERM [facility] Admitting Physician: Other (Kavon) (STEPHEN ROMERO) Condition: GUARDED Referrals: BENJAMÍN FIGUEROA (PCP) STEPHEN ROMERO Mar 10, 2021 11:37 ISSA ROYAL MD Mar 14, 2021 18:07
--- NOTE | 2021-03-10 11:41 | RAD ---
Portable chest x-ray compared to similar PA and lateral chest x-ray dated February 092020 for short ness of breath. FINDINGS: There is redemonstration of a right suprahilar mass, with elevation the right hemidiaphragm likely reflecting some degree of segmental atelectasis as well. Overall this does not appear worse t moraes on the prior chest x-ray, and adjacent lung may be slightly better aerated. Left lung is clear. H eart size within normal limits. IMPRESSION: 1. Essentially stable chest x-ray with right suprahilar mass and signs of upper lobar segmental atele ctasis. No new lung parenchymal abnormalities. Electronically signed by: Parveen Hernandez MD (03/10/2021 11:39 AM) [id number]
[2021-03-10] MEDS ORDERED: IOHEXOL 300 MG/ML 75 ML VIAL. IV ONE (11:45)
[2021-03-10] MEDS ORDERED: CONTRAST GIVEN. MC PRN (11:45)
[2021-03-10 11:53] LABS: BASO # 0.1 x10^3/uL (0.0-0.2); BASO % 1 % (0-3); EOS # 0.1 x10^3/uL (0.0-0.7); EOS % 2 % (0-3); HEMATOCRIT 31.2 % (36.0-47.0); HEMOGLOBIN 10.2 g/dL (12.0-15.5); LYMPH # 1.9 x10^3/uL (1.0-4.8); LYMPH % 20 % (24-48); MEAN CORPUSCULAR HEMOGLOBIN 29 pg (25-35); MEAN CORPUSCULAR HGB CONC 33 g/dL (31-37); MEAN CORPUSCULAR VOLUME 88 fL (79-100); MONO # 0.6 x10^3/uL (0.0-1.1); MONO % 7 % (0-9); NEUT # 6.8 x10^3uL (1.8-7.7); NEUT % 71 % (31-73); PLATELET COUNT 383 x10^3/uL (140-400); RED BLOOD COUNT 3.53 x10^6/uL (3.50-5.40); RED CELL DISTRIBUTION WIDTH 17.1 % (11.5-14.5); WHITE BLOOD COUNT 9.5 x10^3/uL (4.0-11.0)
[2021-03-10 11:56] LABS: CALCIUM 8.6 mg/dL (8.5-10.1); CREATININE 0.8 mg/dL (0.6-1.0); GFR 71.3; POTASSIUM 4.7 mmol/L (3.5-5.1)
[2021-03-10 12:08] LABS: ALBUMIN 3.1 g/dL (3.4-5.0); ALBUMIN/GLOBULIN RATIO 0.7 (1.0-1.7); MAGNESIUM 1.4 mg/dL (1.8-2.4); TOTAL BILIRUBIN 0.2 mg/dL (0.2-1.0); TOTAL PROTEIN 7.5 g/dL (6.4-8.2)
[2021-03-10 12:19] LABS: BGAS PH 7.53 (7.35-7.45)
[2021-03-10 13:42] LABS: BACTERIA,URINE MANY /HPF (0-FEW); BILIRUBIN,URINE NEG (NEG); CLARITY,URINE CLOUDY; COLOR,URINE YELLOW; GLUCOSE,URINE NEG (NEG); NITRITE,URINE POS (NEG); SQUAMOUS EPITHELIAL CELL,UR FEW /LPF; UROBILINOGEN,URINE 0.2 mg/dL (0.2 mg/dL); WBC,URINE >40 /HPF (0-4)
[2021-03-10] MEDS ORDERED: HEPARIN for IV BOLUS 10,000 UNIT/10 ML VIAL. IV PRN ×3 (14:00)
[2021-03-10] MEDS ORDERED: HEPARIN 25,000UTS/250ML PREMIX 250 ML IV PRN (14:00)
[2021-03-10] MEDS ORDERED: HEPARIN for IV BOLUS 10,000 UNIT/10 ML VIAL. IV ONE (14:00)
--- NOTE | 2021-03-10 14:05 | RAD ---
EXAM: CT CHEST, ABDOMEN, AND PELVIS WITH CONTRAST INDICATION: Upper extremity swelling, lung mass, pneumonia COMPARISON: CT chest 02/23/2021 TECHNIQUE: Helical CT imaging performed of the chest, abdomen and pelvis after administration of 75 m L Omnipaque 300 intravenous contrast. Sagittal and coronal reformats were obtained. One or more of the following individualized dose reduction techniques were utilized for this examinat ion: 1. Automated exposure control 2. Adjustment of the mA and/or kV according to patient size 3. Use of iterative reconstruction technique. FINDINGS: CHEST: Thyroid gland and thoracic inlet: Unremarkable. Heart and great vessels: Heart is normal in size. There is trace pericardial fluid, unchanged. There are coronary artery calcifications. Thoracic aorta is normal in caliber. Central pulmonary arteries a re clear. There is attenuation of right upper lobe pulmonary arteries in the region of the mass. There is occlusion of the superior vena cava, and acute appearing thrombus in the right brachiocephal ic vein and part of the right subclavian vein. There are multiple collateral vessels in the right merna st wall and abdominal wall. The azygos vein is enlarged. There is a hot quadrate lobe sign in the rhina er reflecting portosystemic shunting. Mediastinum and ervin: Right suprahilar mass extending into the mediastinum is unchanged, described be low. Lungs and pleura: The large right upper lobe suprahilar mass abutting and extending into the mediasti num is unchanged. This measures approximately 7 to 8 cm in greatest diameter. This continues to encas e the right central bronchovascular structures, with occlusion of the right upper lobe bronchus and n arrowing of the bronchus intermedius. There is unchanged consolidation of lung distal to the mass in the right upper lobe, either post obstructive atelectasis or pneumonia. Unchanged septal thickening a nd tiny nodules around the mass. There is a new small right pleural effusion. Chest wall and axillae: There are multiple collateral vessels in the chest wall, as above. There is n ew extensive subcutaneous edema in the chest wall. Prominent bilateral axillary lymph nodes. Bones: No acute osseous abnormality in the chest. ABDOMEN AND PELVIS: Liver: Liver is enlarged measuring 20 cm in length. There is no focal lesion. There is a hot quadrate lobe sign in the liver reflecting portosystemic shunting. Gallbladder/Biliary Tree: Normal. Pancreas: Normal. Spleen: Normal. Adrenal Glands: Normal. Kidneys/Ureters/Bladder: Kidneys are normal in size and enhance symmetrically. No hydronephrosis. Ure ters are normal. There is diffuse bladder wall thickening. Reproductive Organs: Uterus is present. No adnexal mass. Stomach, small bowel, and colon: The stomach, small bowel, and appendix are normal. There is sigmoid diverticulosis. Vasculature: No aortic aneurysm. Mild calcified aortoiliac atherosclerosis. Lymph Nodes: Enlarged portacaval lymph nodes measuring up to 1 cm short axis are unchanged. There is an abnormal lymph node or soft tissue nodule just inferior to the pancreatic neck and posterior to th e gastric antrum measuring 2.1 x 1.4 cm, unchanged. There is an enlarged right external iliac chain l ymph nodes measuring 2.3 x 2.0 cm (image 123, series 5). Smaller right external iliac chain lymph nod e measures 1.3 x 0.7 cm (image 1 3, series 5). There is an enlarged aortocaval lymph node measuring 1 .8 x 0.9 cm. Prominent left periaortic lymph nodes. There is an enlarged left pelvic sidewall lymph n ode measuring 1.1 x 1.5 cm. Peritoneum and retroperitoneum: No free fluid or free air. Bones: There is a large lytic lesion in the left iliac wing with a soft tissue component measuring 5. 2 x 4.5 cm (image 92, series 5). Suspected additional lytic lesions in the posterior iliac bones Ther e is heterogeneous appearance elsewhere in the pelvis which may represent additional lesions. IMPRESSION: 1. 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 There is acute appea ring thrombus in the right brachiocephalic vein and subclavian veins. Extensive collateral vessels in the right chest wall and upper abdomen. New subcutaneous edema right chest wall. 2. Unchanged right suprahilar mass extending into the mediastinum. New small right pleural effusion. 3. Unchanged bilateral axillary lymphadenopathy. There is also lymphadenopathy in the abdomen and pel vis. 4. Large lytic lesion left iliac wing with a soft tissue component measuring approximately 5 cm. Susp ected additional lytic lesions in the pelvis. 5. Diffuse bladder wall thickening, nonspecific. FOR INTERNAL CODING PURPOSES Critical result: Findings discussed with at 03/10/2021 1:53 PM. RESULT CODE: (C) Electronically signed by: Maddy Day MD (03/10/2021 2:03 PM) [id number]
[2021-03-10 17:27] VITALS: BP 142/64
--- NOTE | 2021-03-10 19:03 | EKG ---
[address] [address] Test Date: 2021-03-10 Test Time: 11:22:51 Pat Name: MARILU PRETTY Department: Room: Gender: F [employer] Chair: JOSE DAVID : 1950 Requested By: ISSA ROYAL Order Number: [id number] Reading MD: [place] Measurements Intervals [place] Rate: 80 P: 64 CO: 120 QRS: 46 QRSD: 68 T: 57 QT: 354 QTc: 412 Interpretive Statements SINUS RHYTHM LOW VOLTAGE ABNORMAL ECG RI6.02 No previous ECG available for comparison Electronically Signed On 03-14-2021 9:53:48 [employer] by [facility]
== END 2021-03-10 19:20 | disposition short-term general hospital (02) ==
LOC: ER 10:14
DX: T79.5XXA Traumatic anuria, initial encounter (principal); I82.290 Acute embolism and thrombosis of other thoracic veins; I82.890 Acute embolism and thrombosis of other specified veins; R59.0 Localized enlarged lymph nodes; Z20.822 Contact with and (suspected) exposure to COVID-19; X58.XXXA Exposure to other specified factors, initial encounter; Y93.89 Activity, other specified; Y92.89 Other specified places as the place of occurrence of the external cause; Y99.8 Other external cause status
CPT/HCPCS: 36415; 36600; 71045; 71260; 74177; 80053; 81001; 82803; 83605; 83735; 83880; 84484; 85025; 85610; 85730; 87040; 87426; 93005; 96365; 96366; 96368; 96375; 99285; C9803; J1644; J1956; Q9967; U0003

== ENCOUNTER 2021-04-02 08:31 | Emergency (ER) | payer MEDICARE, OTHER ==
[~2021-04-02] VITALS: Ht 160 cm; Wt 89.1 kg
--- NOTE | 2021-04-02 08:58 | PHYS DOC ---
Past History Past Medical History: Diabetes, High Cholesterol, Other Past Surgical History: No Surgical History Alcohol Use: Rarely Drug Use: None General Adult HPI: HPI: Patient is a 70-year-old female coming in with substernal chest heaviness since yesterday. Patient stability does have some sore throat states she feels there is a heaviness or pressure. Has not taken anything prior to arrival. Patient was recently diagnosed with a non-small cell lung cancer and has had 7 doses of radiation and 1 round of chemotherapy (she does not know what medication she is getting for chemotherapy). 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 Patient states she has had worsening cough and shortness of breath. Review of Systems: Review of Systems: All other systems within normal limits except for as noted in the HPI Allergies: Allergies: Allergies Coded Allergies Type Severity Reaction Last Updated Verified niacin Allergy Unknown 05/14/19 No codeine Adverse Reaction Intermediate makes her cry 05/14/19 No Physical Exam: PE: Constitutional: Well developed, well nourished, no acute distress, non-toxic appearance. [] HENT: Normocephalic, atraumatic, bilateral external ears normal, nose normal. No posterior pharynx erythema or exudates [] Eyes: PERRLA, conjunctiva normal, no discharge. [] Neck: No rigidity, supple, no stridor. [] Cardiovascular: Regular rate and rhythm, brisk cap refill [] Lungs & Thorax: Non labored symmetric respirations, no tachypnea or respiratory distress. Right-sided rhonchi [] Abdomen: Soft, nondistended. Skin: Warm, dry, no erythema, no rash. [] Back: Unremarkable Extremities: No deformities, range of motion grossly intact, no lower extremity edema [] Neurologic: Alert and oriented X 3, no focal deficits noted. [] Psychologic: Affect normal, judgement normal, mood normal. [] EKG: EKG: Sinus tachycardia, heart rate 105 bpm, normal axis, no ST elevation or depression [] Radiology/Procedures: Radiology/Procedures: [address] [address] IMAGING REPORT Addendum PATIENT: MARILU PRETTY ACCOUNT: [id number] : 1950 LOCATION: ER AGE: 70 SEX: F EXAM STATUS: REG ER ORD. PHYSICIAN: JENNIFER ECHEVERRIA MD REASON: chest pain PROCEDURE: CT ANGIOGRAPHY CHEST ADDENDUM ADDENDUM #1 ADDENDUM: The impression should also include: 5. The mid esophagus is mildly distended with debris. This may reflect reflux, a food bolus or a mid esophageal stricture. Electronically signed by: Marni Hand MD (04/02/2021 10:40 AM) [facility] ORIGINAL REPORT EXAM: CT ANGIOGRAPHY OF THE CHEST WITH AND WITHOUT CONTRAST. HISTORY: Chest pain. TECHNIQUE: Computed tomographic angiography of the chest was performed before and after the intravenous administration of iodinated contrast. 3-D maximum intensity projections were also performed. One or more of the following individualized dose reduction techniques were utilized for this examination: 1. Automated exposure control. 2. Adjustment of the mA and/or kV according to patient size. 3. Use of iterative reconstruction technique. COMPARISON: October 2020. FINDINGS: Images of the upper abdomen reveal no acute abnormality. Bone windows reveal no suspicious lesions. No pulmonary emboli are identified. There is no aortic dissection or aneurysm. A right suprahilar mass contiguous with right paratracheal lymphadenopathy measures approximately 6.8 x 6.4 cm this appears decreased from approximately 8.0 x 7.0 cm on the prior study. The right upper lobe bronchus is occluded, but along the shorter segment than previously. The right upper lobe pulmonary arteries are very narrowed but remain patent. A component of postobstructive atelectasis is noted in the right upper lobe. There are 2 stents within the superior vena cava extending into the brachiocephalic veins. A left port catheter traverses one of the stents and has its tip at the superior cavoatrial junction. At least the right stent remains occluded and there is venous collateralization throughout the right chest wall. Subcutaneous edema is noted throughout the visualized chest wall. The distal aspect of the azygous vein also appears occluded. There is a moderate right pleural effusion. There is no pericardial effusion. The heart is not enlarged. There are atherosclerotic calcifications of the coronary arteries. There is focal atelectasis in the left lower lobe. There is compressive atele ctasis in the right lower lobe. There are no infiltrates. IMPRESSION: 1. No pulmonary embolism. 2. A right suprahilar mass contiguous with right paratracheal and subcarinal lymphadenopathy has decreased in size since the prior study. 3. The superior vena cava and 2 included stents remain occluded. The distal azygous vein is occluded. Chest wall collateralization and chest wall edema are noted. 4. Moderate right pleural effusion. Electronically signed by: Marni Hand MD (04/02/2021 10:12 AM) [facility] DICTATED AND SIGNED BY: ROSEMARY HAND MD DATE: 04/02/21 103 CC: JENNIFER ECHEVERRIA MD; BENJAMÍN FIGUEROA ~ EXAM: CT ANGIOGRAPHY OF THE CHEST WITH AND WITHOUT CONTRAST. HISTORY: Chest pain. TECHNIQUE: Computed tomographic angiography of the chest was performed before and after the intravenous administration of iodinated contrast. 3-D maximum intensity projections were also performed. One or more of the following individualized dose reduction techniques were utilized for this examination: 1. Automated exposure control. 2. Adjustment of the mA and/or kV according to patient size. 3. Use of iterative reconstruction technique. COMPARISON: October 2020. FINDINGS: Images of the upper abdomen reveal no acute abnormality. Bone windows reveal no suspicious lesions. No pulmonary emboli are identified. There is no aortic dissection or aneurysm. A right suprahilar mass contiguous with right paratracheal lymphadenopathy measures approximately 6.8 x 6.4 cm this appears decreased from approximately 8.0 x 7.0 cm on the prior study. The right upper lobe bronchus is occluded, but along the shorter segment than previously. The right upper lobe pulmonary arteries are very narrowed but remain patent. A component of postobstructive atelectasis is noted in the right upper lobe. There are 2 stents within the superior vena cava extending into the brachiocephalic veins. A left port catheter traverses one of the stents and has its tip at the superior cavoatrial junction. At least the right stent remains occluded and there is venous collateralization throughout the right chest wall. Subcutaneous edema is noted throughout the visualized chest wall. The distal aspect of the azygous vein also appears occluded. There is a moderate right pleural effusion. There is no pericardial effusion. The heart is not enlarged. There are atherosclerotic calcifications of the coronary arteries. There is focal atelectasis in the left lower lobe. There is compressive atelec tasis in the right lower lobe. There are no infiltrates. IMPRESSION: 1. No pulmonary embolism. 2. A right suprahilar mass contiguous with right paratracheal and subcarinal lymphadenopathy has decreased in size since the prior study. 3. The superior vena cava and 2 included stents remain occluded. The distal azygous vein is occluded. Chest wall collateralization and chest wall edema are noted. 4. Moderate right pleural effusion. Electronically signed by: Marni Hand MD (04/02/2021 10:12 AM) [facility] DICTATED AND SIGNED BY: ROSEMARY HAND MD DATE: 04/02/21 1001 CC: JENNIFER ECHEVERRIA MD; BENJAMÍN FIGUEROA ~MTH0 0 [] Heart Score: C/O Chest Pain: No Risk Factors: Risk Factors: DM, Current or recent (<one month) smoker, HTN, HLP, family history of CAD, obesity. Risk Scores: Score 0 - 3: 2.5% MACE over next 6 weeks - Discharge Home Score 4 - 6: 20.3% MACE over next 6 weeks - Admit for Clinical Observation Score 7 - 10: 72.7% MACE over next 6 weeks - Early Invasive Strategies Course & Med Decision Making: Course & Med Decision Making Pertinent Labs and Imaging studies reviewed. (See chart for details) Discussed patient with Dr. Nunn, will accept patient care. No telemetry beds available at time of transfer, discussed with hospitalist who agrees that patient is currently stable enough to go to [facility] until a telemetry bed becomes available. [] Dragon Disclaimer: Dragon Disclaimer: This electronic medical record was generated, in whole or in part, using a voice recognition dictation system. Departure Departure: Impression: Primary Impression: Esophagitis Additional Impression: Leukopenia Disposition: 02 SHORT TERM HOSPITAL Condition: GUARDED Referrals: BENJAMÍN FIGUEROA (PCP) JENNIFER ECHEVERRIA MD Apr 02, 2021 08:58
[2021-04-02 09:44] LABS: BASO % 0 % (0-3); EOS % 3 % (0-3); HEMATOCRIT 28.6 % (36.0-47.0); HEMOGLOBIN 9.4 g/dL (12.0-15.5); LYMPH # 0.5 x10^3/uL (1.0-4.8); LYMPH % 52 % (24-48); MEAN CORPUSCULAR HEMOGLOBIN 29 pg (25-35); MEAN CORPUSCULAR HGB CONC 33 g/dL (31-37); MEAN CORPUSCULAR VOLUME 89 fL (79-100); MONO % 4 % (0-9); NEUT # 0.4 x10^3uL (1.8-7.7); NEUT % 41 % (31-73); PLATELET COUNT 100 x10^3/uL (140-400); RED CELL DISTRIBUTION WIDTH 17.8 % (11.5-14.5)
[2021-04-02] MEDS ORDERED: IOHEXOL 350 MG/ML 100 ML VIAL. IV ONE (09:45)
[2021-04-02 09:51] LABS: CREATININE 0.7 mg/dL (0.6-1.0); GFR 83.2
[2021-04-02 09:55] LABS: WHITE BLOOD COUNT 1.1 x10^3/uL (4.0-11.0)
[2021-04-02 10:04] LABS: ALBUMIN/GLOBULIN RATIO 0.8 (1.0-1.7); MAGNESIUM 1.4 mg/dL (1.8-2.4); PHOSPHORUS 3.8 mg/dL (2.6-4.7); TOTAL BILIRUBIN 0.6 mg/dL (0.2-1.0); TOTAL PROTEIN 6.9 g/dL (6.4-8.2)
--- NOTE | 2021-04-02 10:14 | RAD ---
EXAM: CT ANGIOGRAPHY OF THE CHEST WITH AND WITHOUT CONTRAST. HISTORY: Chest pain. TECHNIQUE: Computed tomographic angiography of the chest was performed before and after the intraveno us administration of iodinated contrast. 3-D maximum intensity projections were also performed. One o r more of the following individualized dose reduction techniques were utilized for this examination: 1. Automated exposure control. 2. Adjustment of the mA and/or kV according to patient size. 3. Use of iterative reconstruction technique. COMPARISON: October 2020. FINDINGS: Images of the upper abdomen reveal no acute abnormality. Bone windows reveal no suspicious lesions. No pulmonary emboli are identified. There is no aortic dissection or aneurysm. A right suprahilar mass contiguous with right paratracheal lymphadenopathy measures approximately 6.8 x 6.4 cm this appears decreased from approximately 8.0 x 7.0 cm on the prior study. The right upper lobe bronchus is occluded, but along the shorter segment than previously. The right upper lobe pulmon óscar arteries are very narrowed but remain patent. A component of postobstructive atelectasis is noted in the right upper lobe. There are 2 stents within the superior vena cava extending into the brachiocephalic veins. A left por t catheter traverses one of the stents and has its tip at the superior cavoatrial junction. At least the right stent remains occluded and there is venous collateralization throughout the right chest wal l. Subcutaneous edema is noted throughout the visualized chest wall. The distal aspect of the azygous vein also appears occluded. There is a moderate right pleural effusion. There is no pericardial effusion. The heart is not enlarg ed. There are atherosclerotic calcifications of the coronary arteries. There is focal atelectasis in the left lower lobe. There is compressive atelectasis in the right lowe r lobe. There are no infiltrates. IMPRESSION: 1. No pulmonary embolism. 2. A right suprahilar mass contiguous with right paratracheal and subcarinal lymphadenopathy has decr eased in size since the prior study. 3. The superior vena cava and 2 included stents remain occluded. The distal azygous vein is occluded. Chest wall collateralization and chest wall edema are noted. 4. Moderate right pleural effusion. Electronically signed by: Marni Hand MD (04/02/2021 10:12 AM) [facility]
[2021-04-02 10:44] LABS: INFLUENZA A PATIENT NEGATIVE (NEGATIVE); INFLUENZA B PATIENT NEGATIVE (NEGATIVE)
[2021-04-02 11:15] LABS: % EOS 1 % (0-5); % LYMPHS 49 % (24-48); % MONOS 2 % (0-10); % SEGS 48 % (35-66)
[2021-04-02 11:16] LABS: PLT ESTIMATE DECREASED (ADEQUATE)
[2021-04-02] MEDS ORDERED: IV RINGERS SOLUTION,LACTATED 1,000 ML IV ONE (12:30)
[2021-04-02 14:18] VITALS: BP 146/85
--- NOTE | 2021-04-03 04:37 | EKG ---
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
== END 2021-04-02 16:04 | disposition short-term general hospital (02) ==
LOC: ER 08:31
DX: K20.90 Esophagitis, unspecified without bleeding (principal); D72.819 Decreased white blood cell count, unspecified; E11.9 Type 2 diabetes mellitus without complications; E78.5 Hyperlipidemia, unspecified; Z20.822 Contact with and (suspected) exposure to COVID-19
CPT/HCPCS: 71275; 80053; 83690; 83735; 83880; 84100; 84484; 85007; 85025; 85379; 85610; 87426; 87804; 93005; 96360; 96361; 99285; C9803; J7120; Q9967; U0003

== ENCOUNTER 2021-05-16 13:06 | Emergency (ER) | payer MEDICARE, OTHER ==
[~2021-05-16] VITALS: Ht 160 cm; Wt 87.0 kg
--- NOTE | 2021-05-16 15:05 | PHYS DOC ---
Past History Past Medical History: Diabetes, High Cholesterol, Other Additional Past Medical Histor: lung CA Past Surgical History: No Surgical History Alcohol Use: Rarely Drug Use: None General Adult EDM: Chief Complaint: SORE THROAT HPI: HPI: Patient is a 70-year-old female who presents to the emergency department for sore throat, pain with swallowing, shortness of breath and a productive cough that started yesterday. Patient reports that she takes Trelegy and knows that that can cause some oral thrush and she is unsure if that is what is occurring. She denies any fevers, nausea, vomiting, loss of taste or smell. Review of Systems: Review of Systems: Constitutional: See HPI HENT: See HPI Respiratory: See HPI GI: See HPI Allergies: Allergies: Allergies Coded Allergies Type Severity Reaction Last Updated Verified niacin Allergy Unknown 05/14/19 No codeine Adverse Reaction Intermediate makes her cry 05/14/19 No Physical Exam: PE: Constitutional: Well developed, well nourished, no acute distress, non-toxic appearance. [] HENT: Normocephalic, atraumatic, bilateral external ears normal, oropharynx moist, 2+ tonsillar enlargement, erythematous oropharynx, uvula midline, no trismus, creamy white lesions noted to throat consistent with candidiasis, nose normal. [] Eyes: PERRL, EOMI, conjunctiva normal, no discharge. [] Neck: Normal range of motion, no tenderness, supple, no stridor. [] Cardiovascular:Heart rate tachycardic rhythm, no murmur [] Lungs & Thorax: Bilateral breath sounds clear to auscultation [] Abdomen: Bowel sounds normal, soft, no tenderness, no masses, no pulsatile masses. [] Skin: Warm, dry, no erythema, no rash. [] Back: Normal range of motion Extremities: No tenderness, no cyanosis, no clubbing, ROM intact, no edema. [] Neurologic: Alert and oriented X 3, normal motor function, normal sensory function, no focal deficits noted. [] Psychologic: Affect normal, judgement normal, mood normal. [] Current Patient Data: Labs: Laboratory Tests Test 05/16/21 15:00 05/16/21 15:01 05/16/21 16:11 Influenza Type A (Rapid) Negative Influenza Type B (Rapid) Negative SARS-CoV-2 Antigen (Rapid) Negative Group A Streptococcus Rapid Negative White Blood Count 5.5 x10^3/uL Red Blood Count 2.75 x10^6/uL Hemoglobin 8.9 g/dL Hematocrit 26.7 % Mean Corpuscular Volume 97 fL Mean Corpuscular Hemoglobin 32 pg Mean Corpuscular Hemoglobin Concent 33 g/dL Red Cell Distribution Width 20.7 % Platelet Count 166 x10^3/uL Neutrophils (%) (Auto) 80 % Lymphocytes (%) (Auto) 17 % Monocytes (%) (Auto) 2 % Eosinophils (%) (Auto) 1 % Basophils (%) (Auto) 0 % Neutrophils # (Auto) 4.4 x10^3uL Lymphocytes # (Auto) 0.9 x10^3/uL Monocytes # (Auto) 0.1 x10^3/uL Eosinophils # (Auto) 0.0 x10^3/uL Basophils # (Auto) 0.0 x10^3/uL Sodium Level 135 mmol/L Potassium Level 4.0 mmol/L Chloride Level 96 mmol/L Carbon Dioxide Level 30 mmol/L Anion Gap 9 Blood Urea Nitrogen 12 mg/dL Creatinine 0.7 mg/dL Estimated GFR (Cockcroft-Gault) 83.2 BUN/Creatinine Ratio 17 Glucose Level 115 mg/dL Calcium Level 8.1 mg/dL Total Bilirubin 0.8 mg/dL Aspartate Amino Transf (AST/SGOT) 16 U/L Alanine Aminotransferase (ALT/SGPT) 40 U/L Alkaline Phosphatase 101 U/L Troponin I High Sensitivity 7 ng/L Total Protein 6.7 g/dL Albumin 3.0 g/dL Albumin/Globulin Ratio 0.8 Current Medications Medications (Trade) Dose Ordered Sig/Rosana Route PRN Reason Start Time Stop Time Status Last Admin Dose Admin Sodium Chloride 1,000 ml @ 1,000 mls/hr 1X ONCE IV 05/16/21 16:00 05/16/21 16:59 DC 05/16/21 16:00 Ibuprofen (Motrin) 600 mg 1X ONCE PO 05/16/21 17:30 05/16/21 17:31 DC 05/16/21 17:30 Acetaminophen (Tylenol) 1,000 mg 1X ONCE PO 05/16/21 17:30 05/16/21 17:31 DC 05/16/21 17:30 Iohexol (Omnipaque 350 Mg/ml) 100 ml 1X ONCE IV 05/16/21 17:30 05/16/21 17:31 DC 05/16/21 17:42 Info (Do NOT chart on this entry -- for MONITORING) 1 each PRN DAILY PRN MC SEE COMMENTS 05/16/21 17:45 05/18/21 17:44 Vital Signs: Vital Signs Date Time Temp Pulse Resp B/P (MAP) Pulse Ox O2 Delivery O2 Flow Rate FiO2 05/16/21 13:42 98.0 122 18 134/57 (82) 95 Room Air EKG: EKG: [] EKG performed by ER staff at 1710 shows sinus tachycardia with a rate of 123, QTC of 420, no STEMI read by Dr. Lopes 1713. Radiology/Procedures: Radiology/Procedures: []PROCEDURE: PORTABLE CHEST 1V EXAM: XR CHEST 1V 05/16/2021 3:20 PM CLINICAL INDICATION: Cough, shortness of air, person under investigation COMPARISON: CT chest 04/07/2021 TECHNIQUE: PA view of the chest FINDINGS: A left chest wall port with tip overlying the superior cavoatrial junction and a vascular stent in the superior vena cava and right brachiocephalic vein are unchanged from CT chest 04/07/2021. The heart is normal in size. The right suprahilar mass is grossly unchanged from CT chest 04/07/2021, allowing for differences in modality. The lungs are otherwise clear. No new consolidation. A small right pleural effusion is grossly unchanged. No pneumothorax. No acute osseous abnormality. IMPRESSION: 1. Right suprahilar mass and small right pleural effusion, similar to CT chest 04/07/2021 allowing for differences in modality. 2. No definite evidence of pneumonia. Electronically signed by: Maddy Day MD (05/16/2021 3:33 PM) [id number] DICTATED AND SIGNED BY: MADDY DAY MD DATE: 05/16/21 1524 CC: VENU SR APRN; BENJAMÍN FIGUEROA PA ~MTH0 0 Heart Score: C/O Chest Pain: N/A Risk Factors: Risk Factors: DM, Current or recent (<one month) smoker, HTN, HLP, family history of CAD, obesity. Risk Scores: Score 0 - 3: 2.5% MACE over next 6 weeks - Discharge Home Score 4 - 6: 20.3% MACE over next 6 weeks - Admit for Clinical Observation Score 7 - 10: 72.7% MACE over next 6 weeks - Early Invasive Strategies Course & Med Decision Making: Course & Med Decision Making Pertinent Labs and Imaging studies reviewed. (See chart for details) [] Patient presents to the emergency department for sore throat, pain with swallowing, shortness of breath and a productive cough. Patient be tested for influenza, COVID and strep. Physical exam is consistent with oral candidiasis. Patient continues to be tachycardic in the emergency department and is complaining of shortness of breath therefore CT chest was ordered to rule out a pulmonary embolism and blood work was performed. CT scan of chest showed no PE but occlusion bilaterally in the brief no cephalic and superior vena cava stents as well as the azygous vein. Patient has known lung cancer and she finished her radiation treatments and is currently undergoing chemotherapy. Blood work is unremarkable. Urinalysis shows no acute findings. Patient was treated with IV fluids and Tylenol and ibuprofen as she does have a low-grade temperature. Patient's heart rate has improved after treatment in the emergency department. Patient will be treated with nystatin for her oral candidiasis. I discussed with patient all findings and diagnostic testing as well as the need to follow- up with PCP for further evaluation and treatment or return to the ER if any new or worsening symptoms. Strict return precautions were also discussed at length. Patient voiced understanding and agreement with the plan. Patient is hemodynamically stable at the time of disposition. Dragon Disclaimer: Myke Disclaimer: This electronic medical record was generated, in whole or in part, using a voice recognition dictation system. Departure Departure: Impression: Primary Impression: Oral candidiasis Disposition: HOME / SELF CARE / HOMELESS Condition: GOOD Referrals: BENJAMÍN FIGUEROA (PCP) Patient Instructions: Renee Infection, Adult, Urinary Tract Infection Additional Instructions: You were seen in the emergency department today for sore throat, productive cough and shortness of breath. Your blood work was unremarkable. You had a negative influenza, strep and COVID test. Your CT scan showed chronic findings, please see radiologist read. I would advise you to follow-up with your oncologist regarding these findings. Your urinalysis showed a urinary tract infection which will be treated with an antibiotic. Please start and finish the antibiotic completely. Increase your fluids and avoid bladder irritants like caffeine, sugary beverages or alcohol. Your physical exam was consistent with thrush and this will be treated with nystatin swish and swallow. Please use this as directed. Follow-up with your primary care provider tomorrow regarding your ER visit. Please return to the emergency department if you develop difficulty swallowing, shortness of breath, chest pain, high fevers refractory to treatment or intractable nausea or vomiting. Scripts Cephalexin (KEFLEX) 500 Mg Capsule 1 CAP PO QID for uti for 10 Days, #40 CAP 0 Refills Prov: VENU SR APRN 05/16/21 Nystatin (NYSTATIN) 100,000 Unit/1 Ml Oral.susp 5 ML PO QID for oral candidiasis for 10 Days, #200 ML 0 Refills Prov: VENU SR APRN 05/16/21 VENU SR APRN May 16, 2021 15:05
--- NOTE | 2021-05-16 15:35 | RAD ---
EXAM: XR CHEST 1V 05/16/2021 3:20 PM CLINICAL INDICATION: Cough, shortness of air, person under investigation COMPARISON: CT chest 04/07/2021 TECHNIQUE: PA view of the chest FINDINGS: A left chest wall port with tip overlying the superior cavoatrial junction and a vascular stent in the superior vena cava and right brachiocephalic vein are unchanged from CT chest 04/07/2021. The heart is normal in size. The right suprahilar mass is grossly unchanged from CT chest 04/07/2021, allowing for differences in modality. The lungs are otherwise clear. No new consolidation. A small r ight pleural effusion is grossly unchanged. No pneumothorax. No acute osseous abnormality. IMPRESSION: 1. Right suprahilar mass and small right pleural effusion, similar to CT chest 04/07/2021 allowing for differences in modality. 2. No definite evidence of pneumonia. Electronically signed by: Maddy Day MD (05/16/2021 3:33 PM) [id number]
[2021-05-16 15:41] LABS: INFLUENZA A PATIENT NEGATIVE (NEGATIVE); INFLUENZA B PATIENT NEGATIVE (NEGATIVE)
[2021-05-16] MEDS ORDERED: IV NORMAL SALINE 1,000ML 1,000 ML IV ONE (16:00)
[2021-05-16 17:06] LABS: BASO % 0 % (0-3); EOS % 1 % (0-3); HEMATOCRIT 26.7 % (36.0-47.0); HEMOGLOBIN 8.9 g/dL (12.0-15.5); LYMPH # 0.9 x10^3/uL (1.0-4.8); LYMPH % 17 % (24-48); MEAN CORPUSCULAR HEMOGLOBIN 32 pg (25-35); MEAN CORPUSCULAR HGB CONC 33 g/dL (31-37); MEAN CORPUSCULAR VOLUME 97 fL (79-100); MONO # 0.1 x10^3/uL (0.0-1.1); MONO % 2 % (0-9); NEUT # 4.4 x10^3uL (1.8-7.7); NEUT % 80 % (31-73); PLATELET COUNT 166 x10^3/uL (140-400); RED BLOOD COUNT 2.75 x10^6/uL (3.50-5.40); RED CELL DISTRIBUTION WIDTH 20.7 % (11.5-14.5); WHITE BLOOD COUNT 5.5 x10^3/uL (4.0-11.0)
[2021-05-16 17:18] LABS: CALCIUM 8.1 mg/dL (8.5-10.1); CREATININE 0.7 mg/dL (0.6-1.0); GFR 83.2
[2021-05-16 17:24] LABS: ALBUMIN/GLOBULIN RATIO 0.8 (1.0-1.7); TOTAL BILIRUBIN 0.8 mg/dL (0.2-1.0); TOTAL PROTEIN 6.7 g/dL (6.4-8.2)
[2021-05-16] MEDS ORDERED: IBUPROFEN 600 MG TABLET. PO ONE (17:30)
[2021-05-16] MEDS ORDERED: IOHEXOL 350 MG/ML 100 ML VIAL. IV ONE (17:30)
[2021-05-16] MEDS ORDERED: ACETAMINOPHEN 500 MG TABLET PO ONE (17:30)
[2021-05-16] MEDS ORDERED: CONTRAST GIVEN. MC PRN (17:45)
--- NOTE | 2021-05-16 17:49 | EKG ---
[address] [address] Test Date: 2021-05-16 Test Time: 17:10:19 Pat Name: MARILU PRETTY Department: Room: Gender: F Rn Bsn: ARTIE : 1950 Requested By: VENU SR Order Number: [id number] Reading MD: Measurements Intervals [place] Rate: 123 P: 45 [place]: 126 QRS: 31 QRSD: 68 T: 59 QT: 290 QTc: 420 Interpretive Statements SINUS TACHYCARDIA LOW LIMB LEAD VOLTAGE NO SPECIFIC ECG ABNORMALITIES RI6.02 No previous ECG available for comparison
--- NOTE | 2021-05-16 18:20 | RAD ---
EXAM: CT ANGIOGRAPHY OF THE CHEST WITH AND WITHOUT CONTRAST. HISTORY: Shortness of breath, right lung mass. TECHNIQUE: Computed tomographic angiography of the chest was performed before and after the intraveno us administration of iodinated contrast. 3-D maximum intensity projections were also performed. One o r more of the following individualized dose reduction techniques were utilized for this examination: 1. Automated exposure control. 2. Adjustment of the mA and/or kV according to patient size. 3. Use of iterative reconstruction technique. COMPARISON: 04/02/2021. FINDINGS: Images of the upper abdomen reveal hyperattenuation within hepatic segment 4 consistent wit h venous collateralization. Bone windows reveal no suspicious lesions. No pulmonary emboli are identified. There is no aortic dissection or aneurysm. 2 stents remain within the brachiocephalic veins and superior vena cava. A left port catheter anna es one of the stents. Both stents are occluded, and no flow is appreciated within the proximal superi or vena cava. There is extensive collateralization throughout the body wall bilaterally. This returns to the azygos system, but this also appears occluded. All visualized venous return appears to be via the inferior vena cava. A confluent right paratracheal mass measures approximately 4.7 x 4.6 cm. It is contiguous with right upper lobe atelectasis more anteriorly, and not well-defined. Nevertheless, it is decreased since the prior study, particularly the portion involving the right upper lobe. It is contiguous with subcarin al, right paratracheal and right hilar adenopathy, all of which are stable to decreased. Soft tissue density in the subcarinal region measures 2.9 x 1.9 cm in comparison with 3.4 x 1.9 cm previously. Th e right upper lobe anterior segmental bronchus is occluded, unchanged. A small right pleural effusion is unchanged. There is trace pericardial fluid. The heart is not enlar ged. There are atherosclerotic calcifications of the coronary arteries. A scarlike opacity medially in the left base measures 2.2 x 1.8 cm on image 95 and is unchanged. Anot her inferiorly in the lingula has increased and may reflect developing postradiation pneumonitis or s mall focal infiltrate. IMPRESSION: 1. No pulmonary embolism. 2. 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 All venous return appears to be via the inferior vena cava. 3. Interval decrease in a right upper lobe and right paratracheal mass. Confluent mediastinal adenopa thy is also mildly decreased. 4. Stable small right pleural effusion. 5. Developing small airspace opacity within the lingula suggesting radiation pneumonitis. Another sca rlike nodule in the left base is stable. Recommend attention on further follow-up. Electronically signed by: Marni Hand MD (05/16/2021 6:18 PM) [id number]
[2021-05-16] MEDS ORDERED: NYST1000 PO (18:36)
[2021-05-16] MEDS ORDERED: NYSTATIN 100,000 UNITS/ML ORAL SUSPENSION 60ML BOTTLE. SWSW ONE (18:45)
[2021-05-16 18:59] LABS: BILIRUBIN,URINE NEG (NEG); CLARITY,URINE HAZY; COLOR,URINE YELLOW; GLUCOSE,URINE NEG (NEG)
[2021-05-16 19:00] LABS: BACTERIA,URINE MOD /HPF (0-FEW); NITRITE,URINE POS (NEG); SQUAMOUS EPITHELIAL CELL,UR FEW /LPF; UROBILINOGEN,URINE 0.2 mg/dL (0.2 mg/dL); WBC,URINE 20-40 /HPF (0-4)
[2021-05-16] MEDS ORDERED: CEPH500C PO (19:04)
[2021-05-16 19:05] VITALS: BP 128/68
== END 2021-05-16 19:15 | disposition home or self-care (01) ==
LOC: ER 13:06
DX: B37.0 Candidal stomatitis (principal); E11.9 Type 2 diabetes mellitus without complications; E78.00 Pure hypercholesterolemia, unspecified; Z20.822 Contact with and (suspected) exposure to COVID-19; Z88.1 Allergy status to other antibiotic agents; Z88.5 Allergy status to narcotic agent
CPT/HCPCS: 36415; 71045; 71275; 80053; 81001; 84484; 85025; 87070; 87086; 87880; 93005; 96360; 96361; 99285; J7030; Q9967